=== PATIENT | female | born 1980 | race Caucasian/White ===

== ENCOUNTER → 2016-04-19 | Outpatient (CLI) | payer MEDICAID | LOC: RAD 15:29 | PROVIDERS: ATTEND Internal Medicine | DX: M79.674 Pain in right toe(s) (principal); S92.514A Nondisplaced fracture of proximal phalanx of right lesser toe(s), initial encounter for closed fracture; X58.XXXA Exposure to other specified factors, initial encounter ==

== ENCOUNTER 2016-09-25 22:33 | Emergency (ER) | payer MEDICAID ==
[2016-09-25 22:39] VITALS: BP 142/97
== END 2016-09-26 01:45 | disposition left against medical advice (07) ==
LOC: ER 22:33
DX: Z53.9 Procedure and treatment not carried out, unspecified reason (principal); R22.0 Localized swelling, mass and lump, head

== ENCOUNTER → 2018-06-20 | Outpatient (CLI) | payer MEDICAID ==
--- NOTE | 2018-06-21 12:34 | XCELERA REPORT ---
[address] [facility] [id number] Lower Extremity Venous Evaluation Procedure: Color flow and duplex imaging bilaterally of the veins of the lower extremities as well as the Common Femoral veins. Right Sided Venous Evaluation Normal vessel filling wall to wall, compression and augmentation as well as Colour flow down to the infrageniculate veins. Left Sided Venous Evaluation Normal vessel filling wall to wall, compression and augmentation as well as Colour flow down to the infrageniculate veins. Interpretation Summary No duplex evidence of DVT or obstruction in the bilateral lower extremities. Name: JEFF POOL Age: 37 yrs Gender: Female : 1980 Patient Status: Outpatient Patient Location: Study Date: 06/20/2018 11:27 AM Reason For Study: SWELLING Ordering Physician: CORINNE PRESCOTT Performed By: Lita Garcia : CORINNE PRESCOTT > Aamir Laura
== END ==
LOC: SP 11:10
PROVIDERS: ATTEND Family Medicine
DX: M79.89 Other specified soft tissue disorders (principal)
CPT/HCPCS: 93970

== ENCOUNTER 2018-10-15 22:04 | Emergency (ER) | payer MEDICAID ==
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
[2018-10-16] MEDS ORDERED: ONDANSETRON ODT 4 MG TAB (6 TAB/ER DISP) PO PRN (03:39)
[2018-10-16] MEDS ORDERED: HYDROCODONE/ACETAMINOPHEN 5-325 MG (6 TAB/ER DISP) PO PRN (03:39)
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
[2018-10-16 04:27] VITALS: BP 123/62
== END 2018-10-16 04:28 | disposition home or self-care (01) ==
LOC: ER 22:04
PROC: 2W3CX1Z Immobilization of Right Lower Arm using Splint (ICD-10-PCS; principal; 2018-10-15)
DX: S62.336A Displaced fracture of neck of fifth metacarpal bone, right hand, initial encounter for closed fracture (principal); M79.89 Other specified soft tissue disorders; M79.644 Pain in right finger(s); W51.XXXA Accidental striking against or bumped into by another person, initial encounter; J45.909 Unspecified asthma, uncomplicated
CPT/HCPCS: 99283